=== PATIENT | female | born 1990 | race Caucasian/White ===

== ENCOUNTER 2017-01-27 03:55 | Inpatient (IN) | payer MEDICAID ==
[2017-01-27] MEDS ORDERED: MISOPROSTOL 0.2 MG TABLET ONE (04:24)
[2017-01-27] MEDS ORDERED: OXYTOCIN/NORMAL SALINE 20 UNIT/1,000 ML RTUINJ ONE ×2 (04:24→05:45)
[2017-01-27] MEDS ORDERED: LIDOCAINE 1% INJ-PF (10 MG/ML) 30 ML SDV ONE (04:24)
[2017-01-27] MEDS ORDERED: IBUPROFEN 800 MG TABLET ONE (06:23)
--- NOTE | 2017-01-27 07:08 | Delivery Summary ---
Del Sum A-C Datetime Report Generated by CPN: 01/27/2017 06:17 DELIVERY PERSONNEL DELIVERY PERSONNEL: [phone] Delivery Doctor:: Maximilian Herrera MD Labor and Delivery Nurse:: mEily Watson RNpersonnel monitor Nurse:: Yanni Gudino RN Horseradish Grinder:: Karina Munroe RN Nursery Nurse:: Jennifer Dave RN Financial Investment Manager/PLISSE MACHINE OPERATOR HELPER: Sharon Semar, MEAL TEMPERER MATERNAL INFORMATION Delivery Anesthesia: Local Medications After Delivery: Pitocin Drip 20 Units/1000ml NSS Estimated Blood Loss (ml): 250 Maternal Complications: Precipitous Labor (<3hrs) LABOR SUMMARY EDC: 02/06/2017 00:00 No. Babies in Womb: 1 Attempted: No Labor Anesthesia: None LABOR INFORMATION Reason for Induction: Not Applicable Onset of Labor: 01/27/2017 02:00 Complete Dilatation: 01/27/2017 04:04 Group B Beta Strep: negative Steroids Given: None Reason Steroids Not Administered: Not Applicable MEMBRANES Membranes Rupture Method: Spontaneous Rupture of Membranes: 01/27/2017 02:00 Length of Rupture (hr): 2.45 Amniotic Fluid Color: Clear Amniotic Fluid Amount: Scant Amniotic Fluid Odor: Normal STAGES OF LABOR Stage 1 hr: 2 Stage 1 min: 4 Stage 2 hr: 0 Stage 2 min: 23 Stage 3 hr: 0 Stage 3 min: 9 Total Time in Labor hr: 2 Total Time in Labor min: 36 VAGINAL DELIVERY Episiotomy: Right Mediolateral Laceration Extension: N/A Laceration Type: None Laceration Repair Note: 2 degree episiotomy repaired in usual fashion. Sponge Count Correct: Vaginal Sweep Performed Sharps Count Correct: N/A BABY A INFORMATION Delivery Date/Time: 01/27/2017 04:27 Method of Delivery: Vaginal Born in Route : No : N/A Forceps: N/A Vacuum Extraction: Successful Shoulder Dystocia : No ASSISTED DELIVERY BABY A Indication for Assisted Delivery: bradycardia Catheter Prior to Procedure: No Vacuum Number of Pulls: 1 Vacuum Number of PopOffs: 0 Vacuum/Forceps Comment: kiwi vac with pressure in the green for bradycardia. One pull with no pop offs PRESENTATION/POSITION BABY A Presentation: Cephalic Cephalic Presentation: Vertex Vertex Position: Right Occipital Anterior Breech Presentation: N/A PLACENTA INFORMATION BABY A Placenta Delivery Time : 01/27/2017 04:36 Placenta Method of Delivery: Spontaneous Placenta Status: Delivered SCORES BABY A Heart Rate 1 min: >100 bpm Resp Effort 1 min: Good Cry Reflex Irritability 1 min: Cough or Sneeze or Pulls Away Muscle Tone 1 min: Active Motion Color 1 min: Body [place], Extremities Blue Resuscitation Effort 1 min: Tactile Stimulation SCORE 1 MIN: 9 Heart Rate 5 min: >100 bpm Resp Effort 5 min: Good Cry Reflex Irritability 5 min: Cough or Sneeze or Pulls Away Muscle Tone 5 min: Active Motion Color 5 min: Body [place], Extremities Blue SCORE 5 MIN: 9 INFORMATION BABY A Gestational Age at Delivery: 38.4 Gestational Status: Early Term- 37- 38.6 Weeks Outcome : Liveborn Condition : Stable Sex: Male WEIGHT/LENGTH BABY A Infant Birthweight (gm): 3430 Infant Weight (lb): 7 Weight (oz): 9 Infant Length (in): 19.75 Infant Length (cm): 50.17 CORD INFORMATION BABY A No. Cord Vessels: 3 Nuchal Cord : N/A Cord Blood Taken: Yes-For Storage (Mom's Blood type +) Infant Suction: Mouth; Nose ASSESSMENT BABY A Infant Complications: Extended Bradycardia Physical Findings at Delivery: Molding of the Head Respirations: Appears Normal Skin to Skin: Yes Skin to Skin Time (min): 20 Infant Care By: L Jolie RN/ K Shaneka RN Transferred To: Remains with Mother BABY B INFORMATION : N/A SIGNATURES Signature: with User ID: [email or web address]
[2017-01-27 08:39] LABS: ABSOLUTE LYMPHOCYTES (AUTO) 1.1 10^3/uL (0.5-4.7); ABSOLUTE MONOCYTES (AUTO) 0.8 10^3/uL (0.1-1.4); BASOPHILS % (AUTO) 0.3 % (0-2); EOSINOPHILS % (AUTO) 0.1 % (0-6); HEMATOCRIT 36.8 % (36.0-47.0); HEMOGLOBIN 11.9 g/dL (12.0-15.5); HGB HCT DIFFERENCE -1.1; MEAN CORPUSCULAR HEMOGLOBIN 30.7 pg (27.0-33.4); MEAN CORPUSCULAR HGB CONC 32.5 g/dL (32.0-36.0); MEAN CORPUSCULAR VOLUME 95 fl (80-97); MONOCYTES % (AUTO) 4.8 % (3-13); RED BLOOD COUNT 3.89 10^6/uL (3.72-5.28); RED CELL DISTRIBUTION WIDTH 15.7 % (11.5-14.0); SEGMENTED NEUTROPHILS % (AUTO) 87.8 % (42-78)
[2017-01-27] MEDS ORDERED: MEASLES,MUMPS&RUBELLA VACC/PF 0.5 ML VIAL SUBCUT PRN (10:09)
[2017-01-27] MEDS ORDERED: BENZOCAINE/MENTHOL AEROSOL SPRAY 56 ML TOP PRN (10:09)
[2017-01-27] MEDS ORDERED: DIPH/PERTUSS(ACELL)/TETANUS VAC/PF 0.5 ML SYR (>=10YO) IM PRN (10:09)
[2017-01-27] MEDS ORDERED: DIBUCAINE 1% OINTMENT 28 GM PR PRN (10:09)
[2017-01-27] MEDS ORDERED: ZOLPIDEM TARTRATE 5 MG TABLET PO PRN (10:09)
[2017-01-27] MEDS ORDERED: ACETAMINOPHEN WITH CODEINE #3 TABLET PO PRN ×2 (10:09)
[2017-01-27 13:18] LABS: URINE BARBITURATES SCREEN NEGATIVE; URINE METHADONE SCREEN NEGATIVE
[2017-01-27 13:21] LABS: URINE OPIATES LOW NEGATIVE
[2017-01-27 13:22] LABS: URINE PHENCYCLIDINE SCREEN NEGATIVE
[2017-01-27] MEDS: IBUPROFEN 800 MG TABLET PO SCH ×2 (15:31→21:05)
[2017-01-27] MEDS: FERROUS SULFATE 325 MG TABLET PO SCH (17:33)
[2017-01-27] MEDS: DOCUSATE SODIUM 100 MG CAPSULE PO SCH (17:33)
[2017-01-28] MEDS: IBUPROFEN 800 MG TABLET PO SCH ×3 (05:12→21:38)
[2017-01-28 07:53] LABS: HEMOGLOBIN 12.6 g/dL (12.0-15.5); HGB HCT DIFFERENCE -0.2; MEAN CORPUSCULAR HEMOGLOBIN 30.9 pg (27.0-33.4); MEAN CORPUSCULAR HGB CONC 33.3 g/dL (32.0-36.0); MEAN CORPUSCULAR VOLUME 93 fl (80-97); RED CELL DISTRIBUTION WIDTH 15.5 % (11.5-14.0); WHITE BLOOD COUNT 12.5 10^3/uL (4.0-10.5)
[2017-01-28] MEDS: SENNOSIDES/DOCUSATE 8.6-50 MG 1 EACH TABLET PO SCH (11:15)
[2017-01-28] MEDS: DOCUSATE SODIUM 100 MG CAPSULE PO SCH ×2 (11:16→17:15)
[2017-01-28] MEDS: FERROUS SULFATE 325 MG TABLET PO SCH ×2 (11:16→17:15)
[2017-01-28] MEDS: PRENATAL VITAMIN W-O CA NO5/FE FUMARATE/FA CAPSULE PO SCH (11:16)
--- NOTE | 2017-01-28 11:49 | PDOC PROGRESS REPORT ---
Subjective-OB Subjective: Post Delivery Day: 26 year old. Denies any needs at this time s/p precipitous vaginal delivery well ff@u-1 mod lochia spouse at bedside anticipate d/c in AM Physical Exam (OB) Vital Signs: Temp Pulse Resp BP Pulse Ox 97.9 F 76 17 110/71 100 01/28/17 07:42 01/28/17 07:42 01/28/17 07:42 01/28/17 07:42 01/28/17 07:42 Intake & Output 01/27/17 01/28/17 01/29/17 06:59 06:59 06:59 Intake Total 375 Output Total 800 Balance -425 - PIH/Pre-Eclampsia DTR's: 2 + Clonus: Negative Headache: Absent Epigastric Pain: No Visual Changes: No - Lochia Lochia Amount: Small 10-25 ml Lochia Color: Rubra/Red - Abdomen Description: Soft, Round Hernia Present: No Fundal Description: Firm, Midline Fundal Height: u/u - u/2 Objective-Diagnostic Laboratory: 01/28/17 07:33 01/28/17 07:33 WBC 12.5 H RBC 4.10 Hgb 12.6 Hct 38.0 MCV 93 MCH 30.9 MCHC 33.3 RDW 15.5 H Plt Count 185
[2017-01-29] MEDS: IBUPROFEN 800 MG TABLET PO SCH (05:11)
[2017-01-29] MEDS: DOCUSATE SODIUM 100 MG CAPSULE PO SCH (09:29)
[2017-01-29 09:30] VITALS: BP 118/74
[2017-01-29] MEDS: SENNOSIDES/DOCUSATE 8.6-50 MG 1 EACH TABLET PO SCH (09:30)
[2017-01-29] MEDS: PRENATAL VITAMIN W-O CA NO5/FE FUMARATE/FA CAPSULE PO SCH (09:30)
[2017-01-29] MEDS: FERROUS SULFATE 325 MG TABLET PO SCH (09:30)
--- NOTE | 2017-01-29 10:14 | PDOC DISCHARGE SUMMARY ---
Final Diagnosis Discharge Date: 01/29/17 - Final Diagnosis (1) Status post vacuum-assisted vaginal delivery Is this a current diagnosis for this admission?: Yes Discharge Data - Discharge Medication Home Medications: Valacyclovir HCl [Valtrex] 500 mg PO DAILY 01/27/17 Docusate Sodium [Colace 100 mg Capsule] 100 mg PO BID #60 capsule 01/29/17 Ibuprofen [Motrin 800 mg Tablet] 800 mg PO Q8 #60 tablet 01/29/17 Gestational Age: 38.4 Reason(s) for Admission: Onset of Labor Procedures: NST Intrapartum Procedure(s): Vacuum Extraction Complication(s): Laceration-Vaginal Laceration-Degree: 2nd - Data Baby 1 Female at 1 minute: 9 at 5 minutes: 9 Weight: 3430 kg Home with Mother: Yes Complications: No - Diagnosis Test Laboratory: Temp Pulse Resp BP Pulse Ox 98.1 F 67 14 118/74 99 01/29/17 09:45 01/29/17 09:45 01/29/17 09:45 01/29/17 09:45 01/29/17 09:45 01/27/17 01/27/17 01/28/17 05:26 12:10 07:33 RBC 3.89 4.10 Hgb 11.9 L 12.6 Hct 36.8 38.0 Urine Opiates Screen NEGATIVE - Discharge information/Instructions Discharge Activity: Balance Activity w/Rest, No Lifting Over 10 Pounds, No Lifting/Push/Pulling, Pelvic Rest, No tub bath Discharge Diet: Regular Disposition: HOME, SELF-CARE Follow up with: [facility] in: 4, Weeks
== END 2017-01-29 11:50 | disposition home or self-care (01) | DRG 774 ==
LOC: LC 03:55 → LR 04:27 → 2S 07:48
PROVIDERS: ADMIT Obstetrics & Gynecology; ATTEND Obstetrics & Gynecology
PROC: 10D07Z6 Extraction of Products of Conception, Vacuum, Via Natural or Artificial Opening (ICD-10-PCS; principal; 2017-01-27)
PROC: 0W8NXZZ Division of Female Perineum, External Approach (ICD-10-PCS; 2017-01-27)
DX: O62.3 Precipitate labor (principal); O98.32 Other infections with a predominantly sexual mode of transmission complicating childbirth; O76 Abnormality in fetal heart rate and rhythm complicating labor and delivery; A60.00 Herpesviral infection of urogenital system, unspecified; Z3A.38 38 weeks gestation of pregnancy; Z37.0 Single live birth
CPT/HCPCS: 36415; 80307; 85025; 85027; 86592; 86850; 86900; 86901; J2590; J3490

== ENCOUNTER 2018-02-14 19:39 | Emergency (ER) | payer MEDICAID ==
[2018-02-14] MEDS ORDERED: ONDANSETRON 4 MG TAB.RAPDIS PO ONE (20:07)
[2018-02-14] MEDS ORDERED: HYDROCODONE/ACETAMINOPHEN 5-325 MG (6 TAB/ER DISP) PO PRN (20:07)
--- NOTE | 2018-02-14 20:10 | ER Document Report ---
HPI - HPI Patient complains to provider of: Right foot injury Onset: This afternoon Onset/Duration: Sudden Quality of pain: Sharp Pain Level: 4 Context: Patient states she was walking, tripped on a dog and fell injuring her right foot. Patient complains of right lateral foot pain with swelling. Patient denies any other injury. Associated Symptoms: Other - Right foot injury Exacerbated by: Standing, Movement, Walking Relieved by: Denies Similar symptoms previously: No Recently seen / treated by doctor: No - ROS ROS below otherwise negative: Yes Systems Reviewed and Negative: Yes All other systems reviewed and negative - NEURO Neurology: DENIES: Weakness - MUSCULOSKELETAL Musculoskeletal: REPORTS: Extremity pain, Swelling - DERM Skin Color: Ecchymosis Skin Problems: Abrasion Past Medical History - General Information source: Patient - Social History Smoking Status: Never Smoker Frequency of alcohol use: None Drug Abuse: None Occupation: None Lives with: Family Family History: Reviewed & Not Pertinent Neurological Medical History: Denies: Hx Cerebrovascular Accident, Hx Seizures Musculoskeletal Medical History: Denies Hx Arthritis Psychiatric Medical History: Reports: Hx Anxiety, Hx Depression Surgical Hx: Negative - Immunizations Hx Diphtheria, Pertussis, Tetanus Vaccination: Yes - unknown Vertical Provider Document - CONSTITUTIONAL Agree With Documented VS: Yes Exam Limitations: No Limitations General Appearance: WD/WN, No Apparent Distress - INFECTION CONTROL TRAVEL OUTSIDE OF THE [place] IN LAST 30 DAYS: No - HEENT HEENT: Atraumatic, Normocephalic - NECK Neck: Normal Inspection - RESPIRATORY Respiratory: No Respiratory Distress - CARDIOVASCULAR Pulses: Normal: Dorsalis pedis - MUSCULOSKELETAL/EXTREMETIES Musculoskeletal/Extremeties: MAEW, Tender - Right foot tenderness over base of fifth metatarsal with overlying ecchymosis and edema. Small abrasion to distal right fifth metatarsal - NEURO Level of Consciousness: Awake, Alert, Appropriate Motor/Sensory: No Motor Deficit - DERM Integumentary: Warm, Dry Notes: Abrasion to right foot Course - Diagnostic Test Radiology reviewed: Image reviewed, Reports reviewed Procedures - Immobilization Right Foot Pre-Proc Neuro Vasc Exam: Normal Immobilizer type: Posterior ankle Performed by: PCT Post-Proc Neuro Vasc Exam: Normal Alignment checked and good: Yes Discharge - Discharge Clinical Impression: Foot fracture, right Qualifiers: Encounter type: initial encounter Fracture type: closed Qualified Code(s): S92.901A - Unspecified fracture of right foot, initial encounter for closed fracture Foot abrasion Qualifiers: Encounter type: initial encounter Laterality: right Qualified Code(s): S90.811A - Abrasion, right foot, initial encounter Condition: Stable Disposition: HOME, SELF-CARE Instructions: Foot Fracture ([facility]), Ice & Elevation ([facility]), Oral Narcotic Medication ([facility]), Splint Precautions ([facility]) Additional Instructions: Return immediately for any new or worsening symptoms Followup with your primary care provider, call tomorrow to make a followup appointment Follow-up with orthopedics for further evaluation, call tomorrow for an appointment Prescriptions: Naproxen [Naprosyn 250 Nmg Tablet] 1 tab PO BID #14 tablet Ondansetron HCl [Zofran 4 mg Tablet] 1 - 2 tab PO Q6 PRN #10 tablet PRN Reason: Referrals: [facility] ([facility]ONATH[facility]) [Provider Group] - Follow up tomorrow
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
[2018-02-14 20:45] VITALS: BP 102/75
== END 2018-02-14 20:45 | disposition home or self-care (01) ==
LOC: ER 19:39
PROC: 2W3QX1Z Immobilization of Right Lower Leg using Splint (ICD-10-PCS; principal; 2018-02-14)
DX: S92.901A Unspecified fracture of right foot, initial encounter for closed fracture (principal); S90.811A Abrasion, right foot, initial encounter; S90.414A Abrasion, right lesser toe(s), initial encounter; M79.671 Pain in right foot; M79.89 Other specified soft tissue disorders; W01.0XXA Fall on same level from slipping, tripping and stumbling without subsequent striking against object, initial encounter
CPT/HCPCS: 99283; 73630; 29515; S0119

== ENCOUNTER 2018-02-16 09:14 | Day surgery (SDC) | payer MEDICAID ==
[~2018-02-16 09:14] MED LIST: CEFAZOLIN 2 GM/D5W RTU 2 GM/50 ML RTUPB IV PRN
[2018-02-16 10:01] LABS: APPEARANCE,URINE CLOUDY; BILIRUBIN,URINE NEGATIVE (NEGATIVE); GLUCOSE, URINE NEGATIVE (NEGATIVE); KETONES,URINE NEGATIVE (NEGATIVE); LEUKOCYTE ESTERASE,URINE LARGE (NEGATIVE); NITRITE,URINE NEGATIVE (NEGATIVE); PROTEIN,URINE NEGATIVE (NEGATIVE); URINE SPECIFIC GRAVITY 1.028
[2018-02-16 10:02] LABS: COLOR,URINE YELLOW
[2018-02-16 10:14] LABS: HEMATOCRIT 42.2 % (36.0-47.0); HEMOGLOBIN 14.2 g/dL (12.0-15.5); MEAN CORPUSCULAR HEMOGLOBIN 30.1 pg (27.0-33.4); MEAN CORPUSCULAR HGB CONC 33.6 g/dL (32.0-36.0); MEAN CORPUSCULAR VOLUME 90 fl (80-97); PLATELET COUNT 265 10^3/uL (150-450); RED CELL DISTRIBUTION WIDTH 13.2 % (11.5-14.0); WHITE BLOOD COUNT 8.1 10^3/uL (4.0-10.5)
[2018-02-16] MEDS ORDERED: FENTANYL CITRATE INJ/PF 100 MCG/2 ML AMPUL ONE (11:58)
[2018-02-16] MEDS ORDERED: PROPOFOL INJ 200 MG/20 ML VIAL IV ONE (11:59)
[2018-02-16] MEDS ORDERED: MIDAZOLAM 2 MG/2 ML INJ ONE (11:59)
[2018-02-16] MEDS ORDERED: HYDROMORPHONE HCL INJ/PF 2 MG/ML AMPULE ONE (11:59)
[2018-02-16] MEDS ORDERED: BUPIVACAINE HCL 0.5%-EPI 1:200000 INJ/PF 30 ML VIAL ONE (12:41)
[2018-02-16] MEDS ORDERED: FENTANYL CITRATE INJ/PF 100 MCG/2 ML AMPUL IV PRN ×3 (12:44)
[2018-02-16] MEDS ORDERED: MEPERIDINE HCL/PF INJ 25 MG/1 ML DISP.SYRIN IV PRN (12:44)
[2018-02-16] MEDS ORDERED: DIPHENHYDRAMINE HCL 50 MG/ML VIAL IV PRN (12:44)
[2018-02-16] MEDS ORDERED: OXYCODONE-ACETAMINOPHEN 5-325 MG TABLET PO PRN ×2 (12:44)
[2018-02-16] MEDS ORDERED: PROMETHAZINE HCL INJ 25 MG/1 ML VIAL IV PRN ×2 (12:44)
--- NOTE | 2018-02-16 12:49 | Discharge Summary ---
Discharge Summary (SDC) - Discharge Final Diagnosis: Right fifth metatarsal fracture Date of Surgery: 02/16/18 Discharge Date: 02/16/18 Condition: Good Prescriptions: Hydrocodone/Acetaminophen [Vicodin 5-300 mg Tablet] 1 each PO Q6 PRN #40 tablet PRN Reason: Sulfamethoxazole/Trimethoprim [Septra-Ds 800-160 mg Tablet] 1 tab PO BID #10 tablet Referrals: JOSHUA STRATTON DO [Primary Care Provider] - Discharge Diet: As Tolerated, Regular Discharge Activity: Balance Activity w/Rest, No tub bath Home Care Assistance: None Needed Report the Following to Your Physician Immediately: Shortness of Breath, Fever over 101 Degrees, Drainage-Foul Smelling
--- NOTE | 2018-02-16 12:50 | Operative Report ---
Operative Report DATE OF SURGERY: 02/16/18 PREOPERATIVE DIAGNOSIS: Right fifth metatarsal fracture OPERATION: Open reduction internal fixation right fifth metatarsal fracture SURGEON: NORA BIGGS ANESTHESIA: GA ESTIMATED BLOOD LOSS: Minimal PROCEDURE: With the patient supine and operative table the right lower extremities prepped and draped in sterile fashion. A pin was placed percutaneously through the proximal fifth metatarsal down the medullary canal. A [employer] titanium 4.0 mm cannulated screw 50 mm advanced over the guide jessica. The pin is removed. The wound is irrigated. The skin closing up and nylon. A sterile compressive dressing was applied. The patient's return to PACU in satisfactory condition.
[2018-02-16] MEDS ORDERED: HYDROCODONE/ACETAMINOPHEN 5-325 MG TABLET PO PRN (13:18)
[2018-02-16] MEDS ORDERED: ONDANSETRON 4 MG TAB.RAPDIS PO PRN (13:18)
[2018-02-16] MEDS ORDERED: ONDANSETRON 4 MG TAB.RAPDIS ONE (13:35)
[2018-02-16] MEDS ORDERED: HYDROCODONE/ACETAMINOPHEN 5-325 MG TABLET ONE (13:36)
[2018-02-16 14:38] VITALS: BP 112/68
--- NOTE | 2018-02-16 15:50 | RADIOLOGY REPORT (SQ) ---
EXAM DESCRIPTION: NO CHG FLUORO; FOOT RIGHT 2 VIEWS COMPLETED DATE/TIME: 02/16/2018 3:28 pm REASON FOR STUDY: ORIF RIGHT FOOT ASST WITH FLUORO IN OR S92.351A DISP FX OF FIFTH METATARSAL BONE, RIGHT FOOT, INIT COMPARISON: None. FLUOROSCOPY TIME: 0.2 minutes 2 images saved to PACS. TECHNIQUE: Intra-operative images acquired during surgical procedure to evaluate progress. NUMBER OF IMAGES: 2 LIMITATIONS: None. FINDINGS: Selected images from cancellous screw fixation of proximal 5th metatarsal fracture. Align ment is anatomic. IMPRESSION: IMAGE(S) OBTAINED DURING PROCEDURE. COMMENT: Quality ID [id number]: Final reports for procedures using fluoroscopy that document radiation exp osure indices, or exposure time and number of fluorographic images (if radiation exposure indices are not available) Please consult full operative report of the attending physician for description of the procedure. TECHNICAL DOCUMENTATION: JOB ID: [id number] [employer]- All Rights Reserved Reading location - IP/workstation name: [email or web address]
--- NOTE | 2018-02-16 15:50 | RADIOLOGY REPORT (SQ) ---
EXAM DESCRIPTION: NO CHG FLUORO; FOOT RIGHT 2 VIEWS COMPLETED DATE/TIME: 02/16/2018 3:28 pm REASON FOR STUDY: ORIF RIGHT FOOT ASST WITH FLUORO IN OR S92.351A DISP FX OF FIFTH METATARSAL BONE, RIGHT FOOT, INIT COMPARISON: None. FLUOROSCOPY TIME: 0.2 minutes 2 images saved to PACS. TECHNIQUE: Intra-operative images acquired during surgical procedure to evaluate progress. NUMBER OF IMAGES: 2 LIMITATIONS: None. FINDINGS: Selected images from cancellous screw fixation of proximal 5th metatarsal fracture. Align ment is anatomic. IMPRESSION: IMAGE(S) OBTAINED DURING PROCEDURE. COMMENT: Quality ID 145: Final reports for procedures using fluoroscopy that document radiation exp osure indices, or exposure time and number of fluorographic images (if radiation exposure indices are not available) Please consult full operative report of the attending physician for description of the procedure. TECHNICAL DOCUMENTATION: JOB ID: [id number] [employer]- All Rights Reserved Reading location - IP/workstation name: [email or web address]
== END 2018-02-16 15:04 | disposition home or self-care (01) ==
LOC: OROUT 09:14
PROVIDERS: ATTEND Orthopaedic Surgery
DX: M79.671 Pain in right foot (principal); S92.354A Nondisplaced fracture of fifth metatarsal bone, right foot, initial encounter for closed fracture; X50.1XXA Overexertion from prolonged static or awkward postures, initial encounter
CPT/HCPCS: 36415; 85027; 81025; 81001; 73620; 28485; C1713; C1769; J2250; J3490; S0119; J1170; J2704; J0690; J3010